=== PATIENT | female | born 2000 | race Caucasian/White ===

== ENCOUNTER 2023-01-10 10:30 | Outpatient (OUT) | payer SELFPAY ==
--- NOTE | 2023-01-10 10:34 | MR_ITS ---
The [address] [address] Patient Name: DULCE GREER MRN: [id number] date: 2000 Sex: F Assigned Patient Location: MRI Current Patient Location: MRI Accession/Order Number: [id number] Exam Date: 01/10/2023 10:40 Report Date: 01/10/2023 12:11 At the request of: GABRIELA BELTRÁN Procedure: MR knee LT wo con EXAM: MR knee LT wo con REASON FOR EXAM: Ligamentous Laxity Of Left Knee M23.92. TECHNIQUE: Multiplanar, multisequence imaging of the left knee was performed without contrast COMPARISON: None. FINDINGS: Laterally, the iliotibial band, fibular collateral ligament, popliteus tendon and biceps tendon are intact. The ACL is intact. The lateral meniscus demonstrates normal morphology and signal without tear. The lateral articular cartilage is intact. Medially, the medial collateral ligament is intact. The PCL is intact. The medial meniscus demonstrates normal morphology and signal without tear. The medial articular cartilage is intact. The extensor mechanism is intact. Mild thickening and intermediate signal of the proximal patellar tendon. No tear. The patellofemoral articular cartilage is intact. A superior medial plica extends into the medial patella articulation. Mild likely reactive edema in the suprapatellar fat pad. The bone marrow signal is without fracture. Trace effusion. The regional musculature is without muscle strain or tendon tear. MR/MR knee LT wo con IMPRESSION: 1. No evidence of internal derangement. 2. Severe medial plica extends into the patellofemoral articulation with likely reactive edema in the suprapatellar fat pad. 3. Mild patellar tendinosis. 4. No acute osseous or chondral abnormality. Electronically authenticated by: MIKA WHYTE Date: 01/10/2023 12:11
== END 2023-01-10 10:31 | disposition home or self-care (01) ==
LOC: MRI 10:30
PROVIDERS: PCP Nurse Practitioner Primary Care; Visit Provider Nurse Practitioner Primary Care
DX: M23.92 Unspecified internal derangement of left knee (principal); S76.112A Strain of left quadriceps muscle, fascia and tendon, initial encounter; M67.52 Plica syndrome, left knee
CPT/HCPCS: 73721